=== PATIENT | female | born 1980 | race Caucasian/White ===

== ENCOUNTER 2017-09-07 16:22 | Emergency (ER) | payer MEDICAID ==
[2017-09-07 16:39] VITALS: BP 100/67
--- NOTE | 2017-09-07 17:23 | UC ---
Shoulder Pain HPI - HPI Summary HPI Summary: 36 year old female with shoulder pain. states lifting today, injury to right shoulder, states history of right shoulder surgery. [ End ] - History of Current Complaint Chief Complaint: UCUpperExtremity Stated Complaint: RIGHT SHOULDER/ARM PAIN AND TINGLING Time Seen by Provider: 09/07/17 17:19 Hx Obtained From: Patient Hx Last Menstrual Period: 08/13/17 ?: No Onset/Duration: Sudden Onset Timing: Constant Severity Initially: Moderate Character: Stiffness Aggravating Factor(s): Lifting Alleviating Factor(s): Rest Related History: Similar Episode/Dx As - Allergies/Home Medications Allergies/Adverse Reactions: Allergies Allergy/AdvReac Type Severity Reaction Status Date / Time Benzocaine [From Ora-Jel] Allergy Swelling Verified 09/07/17 16:39 Of Face,Lips,& Throat Codeine Allergy Anaphylatic Verified 09/07/17 16:39 Shock Flu Virus Vaccine Allergy Swelling Verified 09/07/17 16:39 Of Face,Lips,& Throat Hydrocodone [From Vicodin] Allergy Hives Verified 09/07/17 16:39 Latex Allergy Hives Verified 09/07/17 16:39 Metoclopramide [From Reglan] Allergy Hives Verified 09/07/17 16:39 Ondansetron [From Zofran] Allergy Hives Verified 09/07/17 16:39 Penicillins Allergy Swelling Verified 09/07/17 16:39 Of Face,Lips,& Throat Home Medications: Home Medications Ibuprofen TAB* [Advil TAB*] 200 mg PO Q6H PRN 09/07/17 [History Confirmed ] PMH/Surg Hx/FS Hx/Imm Hx Previously Healthy: Yes - Surgical History Surgical History: Yes Surgery Procedure, Year, and Place: NECK SX TO REMOVE A MARIA LUISA. HPV LASER SX. right orbital fx surgery - Family History Known Family History: Positive: None - Social History Occupation: Employed Full-time Lives: With Family Alcohol Use: None Substance Use Type: None Smoking Status (MU): Never Smoked Tobacco Have You Smoked in the Last Year: No When Did the Patient Quit Smoking/Using Tobacco: 11 YRS AGO Review of Systems Musculoskeletal: Arthralgia, Decreased ROM Is Patient Immunocompromised?: No All Other Systems Reviewed And Are Negative: Yes Physical Exam Triage Information Reviewed: Yes Appearance: Well-Appearing, No Pain Distress, Well-Nourished Vital Signs: Initial Vital Signs Temp 98.5 F 09/07/17 16:30 Pulse 73 09/07/17 16:30 Resp 18 09/07/17 16:30 BP 100/67 09/07/17 16:30 Pulse Ox 100 09/07/17 16:30 Vital Signs Reviewed: Yes Eye Exam: Normal ENT Exam: Normal Neck: Positive: 1 Respiratory Exam: Normal Cardiovascular Exam: Normal Musculoskeletal Exam: Normal Neurological Exam: Normal Psychological Exam: Normal Skin Exam: Normal Shoulder Course/Dx - Differential Dx/Diagnosis Differential Diagnosis/HQI/PQRI: Fracture (Closed), Rotator Cuff Injury, Sprain , Strain
== END 2017-09-07 17:30 | disposition home or self-care (01) ==
LOC: UCCORT 16:22
DX: Z53.21 Procedure and treatment not carried out due to patient leaving prior to being seen by health care provider (principal)

== ENCOUNTER 2020-02-09 09:33 | Emergency (ER) | payer OTHER ==
--- NOTE | 2020-02-09 09:40 | UC ---
Eye Complaint HPI - HPI Summary HPI Summary: 39 yo female presents with 2 complaints; 1) She tells me that for the last 2-3 days she has had a red and itchy right eye. 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 She does wear contacts, but has not in the last week due to her eye. She has been using OTC allergy eye drops with no relief. Denies trauma or vision changes. 2) Over the last week has noticed small areas of hyperpigmentation, itchiness, and scaly-ness on her right wrist and right chest. Has not applied any creams. No pain at sites. - History of Current Complaint Stated Complaint: EYE IRRITATION Time Seen by Provider: 02/09/20 09:39 Hx Obtained From: Patient Hx Last Menstrual Period: 08/13/17 Onset/Duration: Gradual Onset Severity Initially: Mild Severity Currently: Mild Pain Intensity: 2 Pain Scale Used: 0-10 Numeric - Allergies/Home Medications Allergies/Adverse Reactions: Allergies Allergy/AdvReac Type Severity Reaction Status Date / Time MS Benzocaine [From Ora-Jel] Allergy Swelling Verified 02/09/20 10:04 Of Face,Lips,& Throat MS Codeine [Codeine] Allergy Anaphylatic Verified 02/09/20 10:04 Shock MS Flu Virus Vaccine Allergy Swelling Verified 02/09/20 10:04 [Flu Virus Vaccine] Of Face,Lips,& Throat MS Hydrocodone [From Vicodin] Allergy Hives Verified 02/09/20 10:04 MS Latex [Latex] Allergy Hives Verified 02/09/20 10:04 MS Metoclopramide Allergy Hives Verified 02/09/20 10:04 [From Reglan] MS Ondansetron [From Zofran] Allergy Hives Verified 02/09/20 10:04 MS Penicillins [Penicillins] Allergy Swelling Verified 02/09/20 10:04 Of Face,Lips,& Throat Home Medications: Home Medications Ibuprofen TAB* [Advil TAB*] 200 mg PO Q6H PRN 09/07/17 [History Confirmed ] Clotrimazole 1% CREAM* [Clotrimazole 1%*] 1 applic TOPICAL BID #1 tube 02/09/20 [Rx] Polymyx/Trimethoprim OPTH* [Polytrim OPHTH*] 1 drop RIGHT EYE QID #1 btl [Rx] PMH/Surg Hx/FS Hx/Imm Hx - Additional Past Medical History Additional PMH: None - Surgical History Surgical History: Yes Surgery Procedure, Year, and Place: NECK SX TO REMOVE A MARIA LUISA. HPV LASER SX. right orbital fx surgery - Family History Known Family History: Positive: Hypertension - Social History Occupation: Employed Full-time Lives: With Family Alcohol Use: None Substance Use Type: None Smoking Status (MU): Never Smoked Tobacco Have You Smoked in the Last Year: No When Did the Patient Quit Smoking/Using Tobacco: 11 YRS AGO Review of Systems All Other Systems Reviewed And Are Negative: No Constitutional: Positive: Negative Skin: Positive: Rash Eyes: Positive: Drainage, Eye Redness ENT: Positive: Negative Respiratory: Positive: Negative Cardiovascular: Positive: Negative Gastrointestinal: Positive: Negative Neurovascular: Positive: Negative Neurological/Mental Status: Positive: Negative Psychological: Positive: Negative Physical Exam - Summary Physical Exam Summary: GENERAL: WDWN. No pain distress. SKIN: RIGHT WRIST: 5mm circular area of hyperpigmentation with scale boarders. Similar appearing lesions on right chest wall. No induration, erythema, or open wound. HEENT: Head: AT/NC Eyes: EOM intact. PERRLA. RIGHT EYE: Mild scleral injection. Conjunctiva with mild erythema and inflammation. Mild clear/yellow discharge. LEFT EYE: Conjunctiva clear without inflammation or discharge. No FBs appreciated Nose: NTTP maxillary and frontal sinus. NECK: Supple. Nontender. No lymphadenopathy. CHEST: No accessory muscle use. Breathing comfortably and in no distress. CV: Pulses intact. Cap refill <2seconds NEURO: Alert. PSYCH: Age appropriate behavior. Triage Information Reviewed: Yes Vital Signs: Vital Signs: Temp Pulse Resp BP Pulse Ox 97.8 F 90 20 117/86 99 02/09/20 09:56 02/09/20 09:56 02/09/20 09:56 02/09/20 09:56 02/09/20 09:56 Vital Signs Reviewed: Yes Eye Complaint Course/Dx - Course Course Of Treatment: Right eye conjunctivitis. - advised not to use contacts until resolved Tinea - Differential Dx/Diagnosis Provider Diagnosis: Conjunctivitis, Tinea Discharge ED - Sign-Out/Discharge Documenting (check all that apply): Patient Departure All imaging exams completed and their final reports reviewed: No Studies - Discharge Plan Condition: Stable Disposition: HOME Prescriptions: Clotrimazole 1% CREAM* [Clotrimazole 1%*] 1 applic TOPICAL BID #1 tube Polymyx/Trimethoprim OPTH* [Polytrim OPHTH*] 1 drop RIGHT EYE QID #1 btl Patient Education Materials: Tinea Corporis (ED), Conjunctivitis (ED) Forms: *Work Release Referrals: Emelia Ulloa PA [Primary Care Provider] - Additional Instructions: If you develop a fever, shortness of breath, chest pain, new or worsening symptoms - please call your PCP or go to the ED immediately. - Billing Disposition and Condition Condition: STABLE Disposition: Home
[2020-02-09 10:03] VITALS: BP 117/86
== END 2020-02-09 10:13 | disposition home or self-care (01) ==
LOC: UCCORT 09:33
DX: H10.9 Unspecified conjunctivitis (principal); B35.9 Dermatophytosis, unspecified; Z88.8 Allergy status to other drugs, medicaments and biological substances; Z88.5 Allergy status to narcotic agent; Z88.7 Allergy status to serum and vaccine; Z91.040 Latex allergy status; Z88.0 Allergy status to penicillin
CPT/HCPCS: 99212; G0463

== ENCOUNTER 2020-03-15 12:01 | Emergency (ER) | payer OTHER ==
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
[2020-03-15 12:23] VITALS: BP 121/82
== END 2020-03-15 12:31 | disposition home or self-care (01) ==
LOC: UCCORT 12:01
DX: J34.89 Other specified disorders of nose and nasal sinuses (principal); J32.9 Chronic sinusitis, unspecified; H92.01 Otalgia, right ear; Z88.5 Allergy status to narcotic agent; Z88.0 Allergy status to penicillin; Z88.7 Allergy status to serum and vaccine; Z88.8 Allergy status to other drugs, medicaments and biological substances; Z88.6 Allergy status to analgesic agent; Z91.040 Latex allergy status; Z87.891 Personal history of nicotine dependence
CPT/HCPCS: 99212; G0463